=== PATIENT | female | born 1985 | race African-American/Black ===

== ENCOUNTER 2018-04-20 10:12 | Emergency (ER) | payer MEDICAID ==
--- NOTE | 2018-04-20 11:51 | ER Document Report ---
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 Patient is nonverbal. She is not able to give any indication as to what happened. Grandmother is in the room with the patient. She states that she is having some looks of pain with palpation of the left lateral foot. She does not know if there is any trauma or injury. TRAVEL OUTSIDE OF THE [place] IN LAST 30 DAYS: Yes - HPI Onset: This morning Onset/Duration: Sudden Associated symptoms: None Exacerbated by: Other - palpation Similar symptoms previously: No Recently seen / treated by doctor: No - Related Data Allergies/Adverse Reactions: No Known Allergies Allergy (Unverified 04/20/18 10:20) Past Medical History - General Information source: Relative - Social History Smoking Status: Never Smoker Chew tobacco use (# tins/day): No Drug Abuse: None Family History: Reviewed & Not Pertinent Patient has suicidal ideation: No Patient has homicidal ideation: No Renal/ Medical History: Denies: Hx Peritoneal Dialysis Review of Systems - Review of Systems -: Yes ROS unobtainable due to patient's medical condition Physical Exam - Vital signs Vitals: Temp Pulse Resp BP Pulse Ox 98.1 F 132 H 20 122/63 97 04/20/18 10:43 04/20/18 10:43 04/20/18 10:43 04/20/18 10:43 04/20/18 10:43 - General General appearance: Appears well Notes: PHYSICAL EXAMINATION: GENERAL: Well-appearing. HEAD: Atraumatic. EYES: Pupils equal round and reactive to light, extraocular movements intact, conjunctiva are normal. ENT: Nares patent, oropharynx clear without exudates. Moist mucous membranes. NECK: Normal range of motion, supple without lymphadenopathy LUNGS: Breath sounds clear to auscultation bilaterally and equal. No wheezes rales or rhonchi. HEART: Regular rate and rhythm without murmurs ABDOMEN: Soft, nontender, nondistended abdomen. No guarding, no rebound. No masses appreciated. Female : deferred Musculoskeletal: No cyanosis. Pulse appreciated using doppler. Slight swelling to the Left foot. Contusion to the lateral left foot. SKIN: Warm, Dry, normal turgor, no rashes or lesions noted. Contusion to the lateral aspect of L foot. Course - Re-evaluation Re-evalutation: 04/20/18 13:04 Left foot third and fourth stress fractures appreciated. Patient splinted. Neurovascularly intact status post splint. Will have patient follow-up with orthopedic surgery outpatient. Grandmother is agreeable with plan of care. - Vital Signs Vital signs: Temp Pulse Resp BP Pulse Ox 98.1 F 132 H 20 122/63 97 04/20/18 10:43 04/20/18 10:43 04/20/18 10:43 04/20/18 10:43 04/20/18 10:43 Discharge - Discharge Clinical Impression: Stress fracture Qualifiers: Encounter type: initial encounter Stress fracture site: toe Laterality: left Qualified Code(s): M84.378A - Stress fracture, left toe(s), initial encounter for fracture Condition: Good Disposition: HOME, SELF-CARE Instructions: Fractured Toe ([facility]) Referrals: AGUSTIN BLANCAS MD [Primary Care Provider] - Follow up as needed KATARINA HOOK DO [ACTIVE STAFF] - Follow up as needed
--- NOTE | 2018-04-20 12:32 | RADIOLOGY REPORT (SQ) ---
EXAM DESCRIPTION: FOOT LEFT COMPLETE COMPLETED DATE/TIME: 04/20/2018 11:58 am REASON FOR STUDY: contusion COMPARISON: None. NUMBER OF VIEWS: Three views. TECHNIQUE: AP, lateral and oblique radiographic images acquired of the left foot. LIMITATIONS: None. FINDINGS: MINERALIZATION: Osteopenia. BONES: Nondisplaced fractures proximal 3rd and 4th metatarsals. No displaced fracture. JOINTS: Intact. SOFT TISSUES: No foreign body. OTHER: No other significant finding. IMPRESSION: Stress fractures proximal 3rd and 4th metatarsals. TECHNICAL DOCUMENTATION: JOB ID: [id number] [employer]- All Rights Reserved Reading location - IP/workstation name: [email or web address]
[2018-04-20 13:14] VITALS: BP 134/91
== END 2018-04-20 13:17 | disposition home or self-care (01) ==
LOC: ER 10:12
DX: M84.378A Stress fracture, left toe(s), initial encounter for fracture (principal); M79.89 Other specified soft tissue disorders; M79.672 Pain in left foot; F84.2 Rett's syndrome
CPT/HCPCS: 99283

== ENCOUNTER 2018-05-11 10:46 | Day surgery (SDC) | payer MEDICAID ==
[2018-04-21 10:42] LABS: ANION GAP 12 (5-19); BLOOD UREA NITROGEN 16 mg/dL (7-20); CALCIUM 9.7 mg/dL (8.4-10.2); CARBON DIOXIDE 27 mmol/L (22-30); CHLORIDE 109 mmol/L (98-107); GLUCOSE 297 mg/dL (75-110); SODIUM 147.9 mmol/L (137-145)
[~2018-05-11 10:46] MED LIST: BUPIVACAINE HCL 0.5%/EPI 1:200000 INJ 1.8 ML CARTRIDGE ONE; LIDOCAINE 2%/EPINEPHRINE INJ 1.7 ML CARTRIDGE ONE
[2018-05-11] MEDS ORDERED: PROMETHAZINE HCL INJ 25 MG/1 ML VIAL IV PRN (12:33)
[2018-05-11] MEDS ORDERED: DIPHENHYDRAMINE HCL 50 MG/ML VIAL IV PRN (12:33)
[2018-05-11] MEDS ORDERED: FENTANYL CITRATE INJ/PF 100 MCG/2 ML AMPUL IV PRN ×3 (12:33)
[2018-05-11] MEDS ORDERED: MEPERIDINE HCL/PF INJ 25 MG/1 ML DISP.SYRIN IV PRN (12:33)
[2018-05-11] MEDS ORDERED: LIDOCAINE 2%/EPINEPHRINE INJ 1.7 ML CARTRIDGE ONE (12:45)
[2018-05-11] MEDS ORDERED: FENTANYL CITRATE INJ/PF 100 MCG/2 ML AMPUL ONE (13:01)
[2018-05-11] MEDS ORDERED: PROPOFOL INJ 200 MG/20 ML VIAL IV ONE (13:01)
[2018-05-11] MEDS ORDERED: MIDAZOLAM 2 MG/2 ML INJ ONE (13:01)
--- NOTE | 2018-05-11 13:42 | Operative Report ---
Operative Report DATE OF SURGERY: 05/11/18 PREOPERATIVE DIAGNOSIS: Dental caries POSTOPERATIVE DIAGNOSIS: Same OPERATION: Surgical removal of tooth #11 SURGEON: CHANA CASTRO ANESTHESIA: Moderate Sedation TISSUE REMOVED OR ALTERED: Tooth which was thrown in the trash COMPLICATIONS: None ESTIMATED BLOOD LOSS: Minimal INTRAOPERATIVE FINDINGS: Nonrestorable tooth #11 PROCEDURE: The patient was brought into operating room #3 and placed on the operating room table in supine position. IV sedation was achieved via a peripheral IV. The patient was then prepped and draped in the usual fashion for an intraoral procedure. A total of 1 carpule of 2% Lidocaine with 1:100K Epi was delivered to the planned surgical site via infiltration. The oral cavity and oropharynx were suctioned and a moistened throat screen was placed. A bite block was used throughout the procedure. A full thickness mucoperisteal flap was elevated. Ostectomy was completed. Tooth was delivered with forcep. Site was debrided and irrigated. No sinus exposure noted. Surgifoam was placed into the socket. Wound reapproximated and sutured with 4-0 chromic gut. The oral cavity was suctioned and found to be free of debris. The throat ring was removed. Gauze pack was placed to aid in continued hemastasis. The patient was taken to recovery in spontaneous breathing fashion.
[2018-05-11 15:38] VITALS: BP 125/75
== END 2018-05-11 15:15 | disposition home or self-care (01) ==
LOC: OROUT 10:46
PROVIDERS: ATTEND Dentist Oral and Maxillofacial Surgery
DX: K02.9 Dental caries, unspecified (principal); E11.9 Type 2 diabetes mellitus without complications; M19.90 Unspecified osteoarthritis, unspecified site; F72 Severe intellectual disabilities; G40.909 Epilepsy, unspecified, not intractable, without status epilepticus; K59.09 Other constipation; Z79.84 Long term (current) use of oral hypoglycemic drugs; Z79.899 Other long term (current) drug therapy; Z79.1 Long term (current) use of non-steroidal anti-inflammatories (NSAID)
CPT/HCPCS: 41899; 36415 ×2; 82947; 84703; 80048; J2250; J3490; J3010; J2704; 170

== ENCOUNTER 2018-07-20 23:07 | Emergency (ER) | payer MEDICAID ==
--- NOTE | 2018-07-20 23:29 | ER Document Report ---
ED General - General Chief Complaint: Breathing Difficulty Stated Complaint: ALTERED MENTAL STATUS Time Seen by Provider: 07/20/18 23:29 Primary Care Provider: AGUSTIN BLANCAS MD [Primary Care Provider] - Follow up as needed Mode of Arrival: Stretcher Information source: Parent Cannot obtain history due to: Mentally challenged Notes: HISTORY OF PRESENT ILLNESS: Patient is a 33-year-old female with a past medical history of epilepsy, mental retardation, and developmental delay who presents with seizure activity. Patient currently takes Keppra 500 mg twice daily. Patient is accompanied by her mother who is a primary source information at bedside. Location: Global Onset: Sudden Provocation: "She was coughing and breathing differently" Quality: "Shaking her arms" Radiation: None Severity: Moderate Timing: Last approximately 3 minutes Recent injury or illness: No recent injury to mother's knowledge, no recent fevers, patient has had a nonproductive cough REVIEW OF SYSTEMS: CONSTITUTIONAL : Denies fever or chills, no sweats. Denies recent illness. EENT: Denies eye, ear, throat, or mouth pain or symptoms. Denies nasal or sinus congestion. CARDIOVASCULAR: Denies chest pain. RESPIRATORY: Positive for cough but no congestion. Denies shortness of breath, difficulty breathing, or wheezing. GASTROINTESTINAL: Denies abdominal pain. Denies nausea, vomiting, or diarrhea. Denies constipation. GENITOURINARY: Denies difficulty urinating, painful urination, burning, frequency, or blood in urine. Denies vaginal bleeding, abnormal or irregular periods. MUSCULOSKELETAL: Denies neck or back pain or joint pain or swelling. SKIN: Denies rash or skin lesions. HEMATOLOGIC : Denies easy bruising or bleeding. LYMPHATIC: Denies swollen, enlarged glands. NEUROLOGICAL: Positive for seizures. Denies altered mental status or loss of consciousness. Denies headache. Denies weakness or paralysis or loss of use of either side. Denies problems with gait or speech. Denies sensory or motor loss. PSYCHIATRIC: Denies anxiety or stress or depression. All other systems reviewed and negative. PHYSICAL EXAMINATION: GENERAL: Somnolent-appearing but responds to pain and in no acute distress. HEAD: Atraumatic, normocephalic. No scalp deformity, depression, or crepitance. EYES: Pupils are 3 mm and equal/round/reactive to light, extraocular movements intact, sclera anicteric, conjunctiva are normal. ENT: Nares patent bilaterally, oropharynx clear without exudates or palatal petechia. Moist mucous membranes. No tonsil hypertrophy. NECK: Normal range of motion, supple without lymphadenopathy. LUNGS: Breath sounds present, equal, and clear to auscultation bilaterally. No wheezes, rales, or rhonchi. HEART: Regular rate and rhythm without murmurs, rubs, or gallops. 2+ peripheral pulses. Normal capillary refill. ABDOMEN: Soft, nontender, nondistended. Normoactive bowel sounds. No guarding, no rebound. No masses appreciated. BACK: Normal contour, no midline tenderness. Rectal exam deferred. EXTREMITIES: Normal range of motion, no pitting or edema. No cyanosis. NEUROLOGICAL: No focal neurological deficits. PSYCH: Nonverbal, winces to pain. SKIN: Warm, dry, normal turgor, no rashes or lesions noted. ASSESSMENT AND PLAN: This patient is a 33-year-old female who presents with recurrent seizure that could be secondary to infection. 1. Will obtain labs, urine, chest x-ray, and reassess the patient after period of observation for a return to her baseline. 2. Will give IV Ativan as needed for recurrent seizure activity. TRAVEL OUTSIDE OF THE [place] IN LAST 30 DAYS: No - Related Data Allergies/Adverse Reactions: No Known Allergies Allergy (Verified 04/21/18 09:30) Past Medical History - General Information source: Parent Cannot obtain history due to: Mentally challenged - Social History Smoking Status: Never Smoker Chew tobacco use (# tins/day): No Frequency of alcohol use: None Drug Abuse: None Lives with: Family Family History: Reviewed & Not Pertinent Patient has suicidal ideation: No Patient has homicidal ideation: No - Past Medical History Cardiac Medical History: Reports: None Denies: Hx Coronary Artery Disease, Hx Heart Attack, Hx Hypertension Pulmonary Medical History: Reports: Hx Pneumonia - A CHILD Denies: Hx Asthma, Hx Bronchitis, Hx COPD EENT Medical History: Reports: None Neurological Medical History: Reports: Hx Seizures - ON MEDICATION. Denies: Hx Cerebrovascular Accident Endocrine Medical History: Reports: None Renal/ Medical History: Reports: None. Denies: Hx Peritoneal Dialysis Malignancy Medical History: Reports: None GI Medical History: Reports: None Musculoskeletal Medical History: Reports None, Denies Hx Arthritis Skin Medical History: Reports None Psychiatric Medical History: Reports: None Traumatic Medical History: Reports: None Infectious Medical History: Reports: None Surgical Hx: Negative Past Surgical History: Reports: None - Immunizations Immunizations up to date: Yes Hx Diphtheria, Pertussis, Tetanus Vaccination: Yes History of Influenza Vaccine for 03/2017 - 08/2017 Season: Yes Physical Exam - Vital signs Vitals: Temp Pulse Resp BP Pulse Ox 98.9 F 117 H 20 121/77 97 07/20/18 23:08 07/20/18 23:08 07/20/18 23:08 07/20/18 23:08 07/20/18 23:08 Course - Re-evaluation Re-evalutation: 07/21/18 03:38 Lab work is grossly unremarkable or otherwise nonspecific, urinalysis is negative for infection, chest x-ray shows no acute pathology. Patient continues to be observed without further seizure activity but has not returned to her baseline according to her mother. We will continue observation. 07/21/18 04:24 Signout was given to [address] Cantrell. - Vital Signs Vital signs: Temp Pulse Resp BP Pulse Ox 97.9 F 124 H 21 H 101/77 98 07/21/18 05:27 07/21/18 05:26 07/21/18 05:27 07/21/18 05:27 07/21/18 05:27 - Laboratory Result Diagrams: 07/21/18 02:07 07/21/18 02:07 Laboratory results interpreted by me: 07/21/18 07/21/18 02:07 02:52 Creatinine 0.27 L Glucose 264 H Urine Glucose (UA) >=500 H Urine Ketones TRACE H Urine Blood MODERATE H Urine Ascorbic Acid 20 H - Diagnostic Test Radiology reviewed: Image reviewed, Reports reviewed - Transfer of Care Care transferred to following provider: Dr. Cantrell Notes: 07/22/18 06:44 Plan is to reassess the patient for mental status changes, and safely disposition the patient home once she has returned to her baseline according to her mother. Discharge - Discharge Clinical Impression: Seizure Condition: Stable Disposition: HOME, SELF-CARE Instructions: Seizure, Known Epileptic ([facility]) Additional Instructions: Your daughter has been evaluated in the Emergency Department for seizure activity. All of her blood work, as well as a urine sample and chest x-ray, are normal. Please follow-up with her primary physician as instructed in 1 week to be reevaluated. Return to the Emergency Department if she experiences high fevers, a seizure lasting longer than 5 minutes, has difficulty breathing, or any other concerning symptoms. Referrals: AGUSTIN BLANCAS MD [Primary Care Provider] - Follow up as needed Print Language: Estonian
[2018-07-21] MEDS ORDERED: LORAZEPAM INJ 2 MG/1 ML VIAL IV ONE (01:47)
[2018-07-21 02:18] LABS: ABSOLUTE LYMPHOCYTES (AUTO) 1.6 10^3/uL (0.5-4.7); ABSOLUTE MONOCYTES (AUTO) 0.5 10^3/uL (0.1-1.4); BASOPHILS % (AUTO) 0.4 % (0-2); EOSINOPHILS % (AUTO) 0.6 % (0-6); HEMATOCRIT 39.3 % (36.0-47.0); LYMPHOCYTES % (AUTO) 22.5 % (13-45); MEAN CORPUSCULAR HEMOGLOBIN 27.3 pg (27.0-33.4); MEAN CORPUSCULAR HGB CONC 33.1 g/dL (32.0-36.0); MEAN CORPUSCULAR VOLUME 83 fl (80-97); MONOCYTES % (AUTO) 6.3 % (3-13); PLATELET COUNT 315 10^3/uL (150-450); RED BLOOD COUNT 4.76 10^6/uL (3.72-5.28); RED CELL DISTRIBUTION WIDTH 13.6 % (11.5-14.0); SEGMENTED NEUTROPHILS % (AUTO) 70.2 % (42-78); TOTAL CELLS COUNTED % (AUTO) 100 %; WHITE BLOOD COUNT 7.2 10^3/uL (4.0-10.5)
[2018-07-21 02:29] LABS: ALANINE AMINOTRANSFERASE 21 U/L (9-52); ALBUMIN 3.8 g/dL (3.5-5.0); ALKALINE PHOSPHATASE 96 U/L (38-126); ANION GAP 13 (5-19); ASPARTATE AMINO TRANSFERASE 28 U/L (14-36); BILIRUBIN,DIRECT 0.1 mg/dL (0.0-0.4); BILIRUBIN,TOTAL 0.2 mg/dL (0.2-1.3); BLOOD UREA NITROGEN 8 mg/dL (7-20); CALCIUM 8.7 mg/dL (8.4-10.2); CARBON DIOXIDE 24 mmol/L (22-30); CHLORIDE 101 mmol/L (98-107); CREATINE KINASE 57 U/L (30-135); GLUCOSE 264 mg/dL (75-110); POTASSIUM 4.1 mmol/L (3.6-5.0); TOTAL PROTEIN 6.7 g/dL (6.3-8.2)
--- NOTE | 2018-07-21 02:31 | RADIOLOGY REPORT (SQ) ---
EXAM DESCRIPTION: XR CHEST 1 VIEW COMPLETED DATE/TME: 07/21/2018 01:47 CLINICAL HISTORY: 33 years, Female, Seizure COMPARISON: None. NUMBER OF VIEWS: One TECHNIQUE: AP view of the chest LIMITATIONS: None. FINDINGS: The lung volumes are decreased but clear. No pleural abnormalities. Cardiac silhouette is normal. IMPRESSION: No acute cardiopulmonary disease. copyright 2010 [employer]- All Rights Reserved
[2018-07-21 03:27] LABS: APPEARANCE,URINE CLEAR; BILIRUBIN,URINE NEGATIVE (NEGATIVE); COLOR,URINE YELLOW; GLUCOSE, URINE >=500 mg/dL (NEGATIVE); KETONES,URINE TRACE mg/dL (NEGATIVE); LEUKOCYTE ESTERASE,URINE NEGATIVE (NEGATIVE); NITRITE,URINE NEGATIVE (NEGATIVE); PROTEIN,URINE NEGATIVE (NEGATIVE); URINE SPECIFIC GRAVITY 1.028; UROBILINOGEN,URINE NEGATIVE mg/dL (<2.0)
[2018-07-21 05:47] VITALS: BP 101/77
== END 2018-07-21 06:00 | disposition home or self-care (01) ==
LOC: ER 23:07
DX: G40.909 Epilepsy, unspecified, not intractable, without status epilepticus (principal); Z79.899 Other long term (current) drug therapy; R05 Cough
CPT/HCPCS: 99285; 51701; 96374; 36415; 82550; 85025; 80053; 81001; 83605; 71045; J2060

== ENCOUNTER 2018-08-05 11:34 | Emergency (ER) | payer MEDICAID ==
--- NOTE | 2018-08-05 13:22 | ER Document Report ---
ED General - General Chief Complaint: Bloody Stools Stated Complaint: RECTAL BLEDEDING Time Seen by Provider: 08/05/18 13:08 Primary Care Provider: AGUSTIN BLANCAS MD [Primary Care Provider] - Follow up as needed Notes: Patient is a 33-year-old female who presents the emergency department with a chief complaint of blood in her stool. Her mother is at bedside to provide additional history. The patient has not had a bowel movement for the past 4 days. She was seen by her primary care provider on Thursday and was sent home. Mother states that she continued to have some bleeding with some clots. She has had problems with constipation in the past. She has a history of Rett syndrome. TRAVEL OUTSIDE OF THE [place] IN LAST 30 DAYS: No - Related Data Allergies/Adverse Reactions: No Known Allergies Allergy (Verified 04/21/18 09:30) Past Medical History - Social History Smoking Status: Never Smoker Family History: Reviewed & Not Pertinent Patient has suicidal ideation: No Patient has homicidal ideation: No - Past Medical History Cardiac Medical History: Denies: Hx Coronary Artery Disease, Hx Heart Attack, Hx Hypertension Pulmonary Medical History: Reports: Hx Pneumonia - A CHILD Denies: Hx Asthma, Hx Bronchitis, Hx COPD Neurological Medical History: Reports: Hx Seizures - ON MEDICATION. Denies: Hx Cerebrovascular Accident Renal/ Medical History: Denies: Hx Peritoneal Dialysis Musculoskeletal Medical History: Denies Hx Arthritis - Immunizations Immunizations up to date: Yes Hx Diphtheria, Pertussis, Tetanus Vaccination: Yes Review of Systems - Review of Systems Notes: Unable to obtain due to patient's mental status. Physical Exam - Vital signs Vitals: Pulse Resp Pulse Ox 68 18 100 08/05/18 11:46 08/05/18 11:46 08/05/18 11:46 - Notes Notes: PHYSICAL EXAMINATION: GENERAL: Appears well, healthy, well-nourished, no acute distress. HEAD: Normocephalic, atraumatic. EYES: PERRL, conjunctiva normal, all extraocular movements intact, sclera nonicteric ENT: Moist mucous membranes. NECK: Supple, no noticeable swelling, redness, rash. Normal range of motion. LUNGS: Equal breath sounds bilaterally and clear to auscultation. No wheezes rales or rhonchi. CARDIOVASCULAR: S1-S2, regular rate, regular rhythm. Radial pulses 2+, normal. ABDOMEN: Normoactive bowel sounds. Firm, nontender, no guarding, no rebound tenderness, and no masses palpated. EXTREMITIES: Normal strength and range of motion, no pitting or edema. No cyanosis. PSYCH: Normal mood, normal affect. SKIN: Warm, dry. No rash, lesions, ulcerations noted. Normal skin turgor. RECTAL: Internal hemorrhoid noted. Course - Re-evaluation Re-evalutation: 08/05/18 14:10 No blood was noted on the patient's rectal exam. Hemorrhoid was noted on rectal exam. No lara blood noted. A KUB will be ordered to assess for constipation. Patient's abdomen feels firm and consistent with no regular bowel movement for the past few days. 08/05/18 15:28 The patient has had a very large bowel movement with streaks of bright red blood, consistent with her hemorrhoid. Since she had a large bowel movement, she is stable for discharge. Her mother was instructed on giving her MiraLAX to help have regular bowel movements every day. Although the x-ray shows a possible renal calculi, her history and exam is most consistent with constipa tion. I have a very low suspicion for renal calculi at this time. Patient does not appear to be in any distress or have facial grimacing. She actually appears she is doing well and smiling after having a bowel movement. Verbal discharge instructions were given to the mother. They verbalized understanding. They are stable for discharge. - Vital Signs Vital signs: Temp Pulse Resp BP Pulse Ox 68 18 100 08/05/18 11:46 08/05/18 11:46 08/05/18 11:46 Discharge - Discharge Clinical Impression: Constipation Qualifiers: Constipation type: unspecified constipation type Qualified Code(s): K59.00 - Constipation, unspecified Condition: Stable Disposition: HOME, SELF-CARE Additional Instructions: Your daughter was seen in the emergency department for lower rectal bleeding. Her bleeding is most likely due to internal hemorrhoids felt on her rectal exam. Since your daughter has chronic constipation, please add MiraLAX to her juice. You may give 1 capful a day and increase or decrease the amount of MiraLAX to give her based off of her bowel movement she has every day. You could also give her prune juice. Please make sure she has a good bowel movement every day or every other day. If she has any worsening symptoms, or has any symptoms that are worrisome to you, please return to the emergency department. Referrals: AGUSTIN BLANCAS MD [Primary Care Provider] - Follow up as needed
--- NOTE | 2018-08-05 14:09 | RADIOLOGY REPORT (SQ) ---
EXAM DESCRIPTION: KUB/ABDOMEN (SINGLE VIEW) COMPLETED DATE/TIME: 08/05/2018 1:56 pm REASON FOR STUDY: eval constipation COMPARISON: None. NUMBER OF VIEWS: One view. TECHNIQUE: Supine radiographic image of the abdomen acquired. LIMITATIONS: None. FINDINGS: BOWEL GAS PATTERN: Normal bowel gas pattern. No dilated loops. Moderate colonic and recta l fecal burden. CALCIFICATIONS: Question of left renal calculus versus fecal material. SOFT TISSUES: No gross mass or suggestion of organomegaly. HARDWARE: None in the abdomen. BONES: Levoconvex scoliosis thoracolumbar spine. OTHER: No other significant finding. IMPRESSION: 1. NO RADIOGRAPHIC EVIDENCE FOR ACUTE ABDOMINAL DISEASE. Moderate colonic and rectal fe luz marina burden. 2. Question of left renal calculus versus fecal material. TECHNICAL DOCUMENTATION: JOB ID: [id number] [employer]- All Rights Reserved Reading location - IP/workstation name: [email or web address]
== END 2018-08-05 15:50 | disposition home or self-care (01) ==
LOC: ER 11:34
DX: K59.00 Constipation, unspecified (principal); R19.5 Other fecal abnormalities
CPT/HCPCS: 74018; 99283

== ENCOUNTER 2018-08-16 10:55 | Day surgery (SDC) | payer MEDICAID ==
[2018-08-16] MEDS ORDERED: PROPOFOL INJ 200 MG/20 ML VIAL IV ONE (11:00)
--- NOTE | 2018-08-16 14:26 | Operative Report ---
Operative Report DATE OF SURGERY: 08/16/18 Operative Report: The risks, benefits and alternatives of the procedure including the risk of bleeding, perforation requiring surgery have been explained to the patient in detail and informed consent has been obtained. Patient is brought back to the endoscopy suite and placed in a left, lateral decubital position. Timeout was called. Propofol medication is given. Rectal examination is done which did not reveal any masses, tears or fissures. An Olympus videoscope was inserted into the patient's rectum. The scope was then carefully advanced all the way to the cecum. Patient has a redundant colon. The scope was then sequentially pulled back via the various sections of the colon. The cecum is identified with the usual anatomical landmarks of the ileocecal valve as well as the appendiceal office. The ascending colon, hepatic flexure, transverse colon, splenic flexure, descending colon and finally into the rectosigmoid portions of the colon are evaluated. Retroflexion maneuver was done. PREOPERATIVE DIAGNOSIS: Rectal bleeding POSTOPERATIVE DIAGNOSIS: Internal hemorrhoids. Mild inflammation noted in the ascending colon status post biopsy OPERATION: Colonoscopy with biopsy SURGEON: KEILA TALBERT ANESTHESIA: LMAC TISSUE REMOVED OR ALTERED: As noted above. COMPLICATIONS: None. ESTIMATED BLOOD LOSS: None. INTRAOPERATIVE FINDINGS: As noted above. PROCEDURE: Patient tolerated the procedure well. No immediate postprocedure complications are noted. Patient discharged in good condition. Discharge date 08/16/2018. Discharge diet: Regular. Discharge activity: Regular. 2-3-week follow-up to discuss findings. Patient is instructed to call the office or proceed to the emergency room should there be any further problems or questions. Wait on the pathology.
[2018-08-16 14:29] VITALS: BP 120/78
== END 2018-08-16 14:22 | disposition home or self-care (01) ==
LOC: END 10:55
PROVIDERS: ATTEND Internal Medicine Gastroenterology
DX: K52.9 Noninfective gastroenteritis and colitis, unspecified (principal); K62.5 Hemorrhage of anus and rectum; K64.8 Other hemorrhoids; E11.9 Type 2 diabetes mellitus without complications; G40.909 Epilepsy, unspecified, not intractable, without status epilepticus; Z79.899 Other long term (current) drug therapy; Z79.84 Long term (current) use of oral hypoglycemic drugs
CPT/HCPCS: 45380; 82962; 88305 ×2; J2704

== ENCOUNTER 2020-02-08 22:26 | Emergency (ER) | payer MEDICAID ==
[2020-02-08 22:41] VITALS: BP 115/74
--- NOTE | 2020-02-08 23:03 | ER Document Report ---
ED Medical Screen (RME) - General Chief Complaint: Seizure Stated Complaint: POSSIBLE SEIZURES Time Seen by Provider: 02/08/20 22:58 Primary Care Provider: AGUSTIN BLANCAS MD [Primary Care Provider] - Follow up as needed Mode of Arrival: Wheelchair Information source: Parent Notes: 35-year-old female presented to ED for possible seizures tonight. Patient is acting her normal self according to her mother at this time. She states she does have Rett syndrome and arthritis. She is on seizure medications and mother states she has given her the medications as prescribed. She states she should have called the doctor yesterday and today when she had the seizures but she did not. She brought her in tonight because she was concerned because she had a space that look like she has when she has seizures. I have greeted and performed a rapid initial assessment of this patient. A comprehensive ED assessment and evaluation of the patient, analysis of test resu lts and completion of medical decision making process will be conducted by an additional ED providers. TRAVEL OUTSIDE OF THE [place] IN LAST 30 DAYS: No - Related Data Allergies/Adverse Reactions: No Known Allergies Allergy (Verified 08/16/18 11:50) Past Medical History - Past Medical History Cardiac Medical History: Denies: Hx Coronary Artery Disease, Hx Heart Attack, Hx Hypertension Pulmonary Medical History: Reports: Hx Pneumonia - A CHILD Denies: Hx Asthma, Hx Bronchitis, Hx COPD Neurological Medical History: Reports: Hx Seizures - ON MEDICATION. Denies: Hx Cerebrovascular Accident Renal/ Medical History: Denies: Hx Peritoneal Dialysis Musculoskeltal Medical History: Denies Hx Arthritis - Immunizations Immunizations up to date: Yes Hx Diphtheria, Pertussis, Tetanus Vaccination: Yes Physical Exam - Vital signs Vitals: Temp Pulse Resp BP Pulse Ox 97.5 F 105 H 20 115/74 98 02/08/20 22:37 02/08/20 22:37 02/08/20 22:37 02/08/20 22:37 02/08/20 22:37 Course - Vital Signs Vital signs: Temp Pulse Resp BP Pulse Ox 97.5 F 105 H 20 115/74 98 02/08/20 22:37 02/08/20 22:37 02/08/20 22:37 02/08/20 22:37 02/08/20 22:37 Doctor's Discharge - Discharge Referrals: AGUSTIN BLANCAS MD [Primary Care Provider] - Follow up as needed
== END 2020-02-09 | disposition left against medical advice (07) ==
LOC: ER 22:26
DX: R56.9 Unspecified convulsions (principal); Z79.899 Other long term (current) drug therapy; Z53.20 Procedure and treatment not carried out because of patient's decision for unspecified reasons
CPT/HCPCS: 99281